=== PATIENT | male | born 1930 | race Caucasian/White ===

== ENCOUNTER → 2016-08-21 | Outpatient (CLI) | payer OTHER ==
[~2016-08-21] MED LIST: ATOR-22 PO; CHOL20007 PO; DABI150C PO; DILT-115 PO; FLUT0.15; LSX20 PO; METF-384 PO; MULT-506 PO; MULT60CA PO; PRT/20 PO; TAMS0.4C38 PO
[2016-08-21 17:37] LABS: ALT/SGPT 26 U/L (12-78); AST/SGOT 13 U/L (15-37); BLOOD UREA NITROGEN 25 mg/dl (7-18); BUN/CREATININE RATIO 20.6 (10-20); CARBON DIOXIDE 30 mmol/L (21-32); CHLORIDE 105 mmol/L (98-107); GLUCOSE 126 mg/dl (70-99); HDL CHOLESTEROL 79 mg/dl; POTASSIUM 4.2 mmol/L (3.5-5.1); SODIUM 143 mmol/L (136-145)
[2016-08-21 17:40] LABS: ALKALINE PHOSPHATASE 74 U/L (45-117); CHOLESTEROL 145 mg/dl (0-200); CHOLESTEROL/HDL RATIO 1.8; LDL CHOLESTEROL CALCULATED 36 mg/dl; TRIGLYCERIDES 151 mg/dl (0-150); VERY LOW DENSITY LIPOPROT CALC 30 mg/dl
== END | disposition home or self-care (01) ==
LOC: C.LABBC 15:36
PROVIDERS: ATTEND Internal Medicine
DX: Z00.00 Encounter for general adult medical examination without abnormal findings (principal)

== ENCOUNTER → 2016-08-24 | Outpatient (CLI) | payer OTHER ==
[2016-08-24 13:34] LABS: BASO % 0.2 %; BASO ABS # 0.02 K/uL (0-0.2); COMPLETE YES; EOS % 3.6 %; HEMATOCRIT 41.7 % (42-52); IG% 0.1 %; LYMPH % 23.9 %; LYMPH ABS # 1.99 K/uL (1.2-3.4); MEAN CELL VOLUME 86.3 fL (80-100); MEAN CORPUSCULAR HEMOGLOBIN 28.8 pg (25-34); MEAN CORPUSCULAR HGB CONC 33.3 g/dl (32-36); MEAN PLATELET VOLUME 11.7 fL (7.4-10.4); MONO % 8.7 %; NEUT % 63.5 %; PLATELET COUNT 196 K/uL (130-400); RED BLOOD COUNT 4.83 M/uL (4.7-6.1); WHITE BLOOD COUNT 8.31 K/uL (4.8-10.8)
[2016-08-24 14:01] LABS: ESTIMATED AVERAGE GLUCOSE 154 mg/dl; HA1C FLAG Normal (Normal)
== END | disposition home or self-care (01) ==
LOC: C.LABBC 11:31
PROVIDERS: ATTEND Internal Medicine
DX: Z79.01 Long term (current) use of anticoagulants (principal); Z51.81 Encounter for therapeutic drug level monitoring; E11.9 Type 2 diabetes mellitus without complications

== ENCOUNTER → 2017-02-23 | Outpatient (CLI) | payer OTHER ==
[2017-02-23 12:20] LABS: BLOOD UREA NITROGEN 22 mg/dl (7-18); BUN/CREATININE RATIO 18.6 (10-20); CALCIUM 9.3 mg/dl (8.5-10.1); CARBON DIOXIDE 29 mmol/L (21-32); CHLORIDE 104 mmol/L (98-107); GLUCOSE 204 mg/dl (70-99); SODIUM 138 mmol/L (136-145)
[2017-02-23 13:04] LABS: ESTIMATED AVERAGE GLUCOSE 146 mg/dl; HA1C FLAG Normal (Normal)
== END | disposition home or self-care (01) ==
LOC: C.LAB1850 10:21
PROVIDERS: ATTEND Physician Assistant Medical
DX: E78.5 Hyperlipidemia, unspecified (principal); E55.9 Vitamin D deficiency, unspecified; E11.29 Type 2 diabetes mellitus with other diabetic kidney complication

== ENCOUNTER → 2017-06-13 | Outpatient (CLI) | payer OTHER ==
[~2017-06-13] MED LIST changes: +AMOX875T PO
[2017-06-13 17:33] LABS: HEMATOCRIT 42.4 % (42-52); HEMOGLOBIN 14.1 g/dL (14.0-18.0); MEAN CELL VOLUME 86.2 fL (80-100); MEAN CORPUSCULAR HEMOGLOBIN 28.7 pg (25-34); MEAN CORPUSCULAR HGB CONC 33.3 g/dl (32-36); MEAN PLATELET VOLUME 11.9 fL (7.4-10.4); PLATELET COUNT 219 K/uL (130-400); RED CELL DISTRIBUTION WIDTH CV 14.7 % (11.5-14.5); RED CELL DISTRIBUTION WIDTH SD 45.4 fL (36.4-46.3); WHITE BLOOD COUNT 10.15 K/uL (4.8-10.8)
[2017-06-13 17:58] LABS: BLOOD UREA NITROGEN 24 mg/dl (7-18); CALCIUM 9.9 mg/dl (8.5-10.1); CARBON DIOXIDE 30 mmol/L (21-32); CREATININE 1.57 mg/dl (0.60-1.40); GLUCOSE 150 mg/dl (70-99); POTASSIUM 4.2 mmol/L (3.5-5.1); SODIUM 136 mmol/L (136-145)
== END | disposition home or self-care (01) ==
LOC: C.LABBC 15:11
PROVIDERS: ATTEND Internal Medicine Cardiovascular Disease
DX: I50.32 Chronic diastolic (congestive) heart failure (principal); Z79.01 Long term (current) use of anticoagulants; I48.92 Unspecified atrial flutter

== ENCOUNTER → 2017-06-22 | Outpatient (CLI) | payer OTHER ==
[~2017-06-22] MED LIST changes: -AMOX875T PO
[2017-06-22 14:15] LABS: BLOOD UREA NITROGEN 26 mg/dl (7-18); CALCIUM 9.4 mg/dl (8.5-10.1); CARBON DIOXIDE 29 mmol/L (21-32); CREATININE 1.31 mg/dl (0.60-1.40); GLUCOSE 128 mg/dl (70-99); POTASSIUM 4.1 mmol/L (3.5-5.1); SODIUM 139 mmol/L (136-145)
== END | disposition home or self-care (01) ==
LOC: C.LABBC 12:13
PROVIDERS: ATTEND Internal Medicine Cardiovascular Disease
DX: N28.9 Disorder of kidney and ureter, unspecified (principal)

== ENCOUNTER → 2017-08-07 | Outpatient (CLI) | payer OTHER ==
[2017-08-07 13:21] LABS: BASO % 0.5 %; BASO ABS # 0.04 K/uL (0-0.2); EOS % 5.8 %; EOS ABS # 0.47 K/uL (0-0.5); HEMATOCRIT 42.2 % (42-52); HEMOGLOBIN 14.3 g/dL (14.0-18.0); IG# 0.01 K/uL (0.00-0.02); LYMPH % 28.1 %; LYMPH ABS # 2.29 K/uL (1.2-3.4); MEAN CELL VOLUME 85.9 fL (80-100); MEAN CORPUSCULAR HEMOGLOBIN 29.1 pg (25-34); MEAN CORPUSCULAR HGB CONC 33.9 g/dl (32-36); MEAN PLATELET VOLUME 12.1 fL (7.4-10.4); MONO % 8.8 %; MONO ABS # 0.72 K/uL (0.11-0.59); NEUT % 56.7 %; NEUT ABS # 4.63 K/uL (1.4-6.5); PLATELET COUNT 197 K/uL (130-400); RED CELL DISTRIBUTION WIDTH CV 14.9 % (11.5-14.5); RED CELL DISTRIBUTION WIDTH SD 47.2 fL (36.4-46.3); WHITE BLOOD COUNT 8.16 K/uL (4.8-10.8)
[2017-08-07 13:40] LABS: ALBUMIN 3.6 gm/dl (3.4-5.0); ALKALINE PHOSPHATASE 79 U/L (45-117); ALT/SGPT 28 U/L (12-78); AST/SGOT 18 U/L (15-37); BLOOD UREA NITROGEN 30 mg/dl (7-18); CALCIUM 9.7 mg/dl (8.5-10.1); CARBON DIOXIDE 32 mmol/L (21-32); CREATININE 1.36 mg/dl (0.60-1.40); GLUCOSE 119 mg/dl (70-99); POTASSIUM 4.4 mmol/L (3.5-5.1); SODIUM 139 mmol/L (136-145); TOTAL PROTEIN 7.5 gm/dl (6.4-8.2)
== END | disposition home or self-care (01) ==
LOC: C.LABBC 09:50
PROVIDERS: ATTEND Internal Medicine
DX: R53.83 Other fatigue (principal); I48.92 Unspecified atrial flutter; I50.32 Chronic diastolic (congestive) heart failure; E11.29 Type 2 diabetes mellitus with other diabetic kidney complication; Z79.01 Long term (current) use of anticoagulants

== ENCOUNTER 2017-08-27 09:49 | Emergency (ER) | payer OTHER ==
[~2017-08-27] VITALS: Ht 157.5 cm; Wt 93.1 kg
[2017-08-27 10:15] VITALS: TEMP 36.7; O2SAT 97; Ht 157.5 cm; Wt 93.1 kg
[2017-08-27 10:49] LABS: BASO % 0.2 %; BASO ABS # 0.02 K/uL (0-0.2); EOS % 1.2 %; HEMATOCRIT 40.2 % (42-52); HEMOGLOBIN 13.9 g/dL (14.0-18.0); IG# 0.02 K/uL (0.00-0.02); LYMPH % 9.7 %; MEAN CELL VOLUME 83.2 fL (80-100); MEAN CORPUSCULAR HEMOGLOBIN 28.8 pg (25-34); MEAN CORPUSCULAR HGB CONC 34.6 g/dl (32-36); MEAN PLATELET VOLUME 10.5 fL (7.4-10.4); MONO % 6.4 %; MONO ABS # 0.53 K/uL (0.11-0.59); NEUT % 82.3 %; NEUT ABS # 6.79 K/uL (1.4-6.5); PLATELET COUNT 190 K/uL (130-400); RED CELL DISTRIBUTION WIDTH CV 14.8 % (11.5-14.5); RED CELL DISTRIBUTION WIDTH SD 45.2 fL (36.4-46.3); WHITE BLOOD COUNT 8.26 K/uL (4.8-10.8)
[2017-08-27 10:59] LABS: INR 1.2 (0.9-1.1); PTT PATIENT 38.7 SECONDS (21.0-31.0)
--- NOTE | 2017-08-27 11:01 | DIAGNOSTIC IMAGING REPORT ---
CHEST ONE VIEW PORTABLE CLINICAL HISTORY: 87 years-old Male presenting with EVALUATE ALTERED MENTAL STATUS/WEAKNESS. TECHNIQUE: Portable upright AP view of the chest was obtained. COMPARISON: 03/29/2016. FINDINGS: Atherosclerosis of aortic arch. Cardiac silhouette enlarged. Left retrocardiac opacity with obscuration of the left hemidiaphragm. Right lung and pleural space clear. Degenerative changes of the thoracic spine. Cholecystectomy clips noted. IMPRESSION: 1. Cardiomegaly. No acute cardiopulmonary disease. 2. Left retrocardiac opacity likely relates to a large hiatal hernia and atelectasis. Electronically signed by: Alfredo Hernandez M.D. 08/27/2017 10:59 AM Dictated Date/Time: 08/27/2017 10:57 AM
[2017-08-27 11:07] LABS: ALBUMIN 3.4 gm/dl (3.4-5.0); ALT/SGPT 25 U/L (12-78); BLOOD UREA NITROGEN 22 mg/dl (7-18); CALCIUM 9.5 mg/dl (8.5-10.1); CARBON DIOXIDE 26 mmol/L (21-32); CREATININE 1.26 mg/dl (0.60-1.40); GLUCOSE 155 mg/dl (70-99); LIPASE 67 U/L (73-393); SODIUM 137 mmol/L (136-145)
--- NOTE | 2017-08-27 11:07 | DIAGNOSTIC IMAGING REPORT ---
HEAD WITHOUT CONTRAST (CT) CLINICAL HISTORY: 87 years-old Male presenting with EVALUATE ALTERED MENTAL STATUS/WEAKNESS. TECHNIQUE: Multidetector CT imaging of the head was performed without the use of intravenous contrast. IV contrast: None. A dose lowering technique was used consistent with the principles of ALARA (as low as reasonably achievable). COMPARISON: None. CT DOSE (mGy.cm): The estimated cumulative dose is 537.48 mGy.cm. FINDINGS: Supervisor Assembly Stock topogram: Unremarkable. Proportional ventricular and sulcal prominence, likely age-related parenchymal volume loss. Brain parenchyma normal in appearance with preserved trivedi-white differentiation. No mass effect or midline shift. No hemorrhage or acute territorial infarct. No extra-axial fluid collection. Mucosal thickening in the left frontal sinus and ethmoid air cells with aerated secretions. Calvarium intact. IMPRESSION: 1. No acute intracranial abnormality. 2. Extensive mucosal thickening with some aerated secretions in the left frontal sinus and ethmoid air cells, raising concern for acute sinusitis. Electronically signed by: Alfredo Hernandez M.D. 08/27/2017 11:06 AM Dictated Date/Time: 08/27/2017 11:04 AM
[2017-08-27 11:16] LABS: ALKALINE PHOSPHATASE 81 U/L (45-117); AST/SGOT 18 U/L (15-37); CKMB 1.7 ng/ml (0.5-3.6); TOTAL PROTEIN 7.3 gm/dl (6.4-8.2)
[2017-08-27] MEDS ORDERED: AMOX875T PO (12:03)
--- NOTE | 2017-08-27 12:04 | EMERGENCY ROOM VISIT NOTE ---
History Report prepared by Fransisco: Parth Rodriges Under the Supervision of: Dr. Willi Zaidi D.O. First contact with patient: 10:13 Chief Complaint: SHORTNESS OF BREATH Stated Complaint: SHORTNESS OF BREATH, FELL DOWN THIS MORNING History of Present Illness The patient is a 87 year old male who presents to the Emergency Room by EMS with complaints of a syncopal episode occurring two hours ago. The patient also complains of leg swelling, and shortness of breath (last night). He states that he had an episode of involuntary movement of his arms and legs during the night last night. He state that he was laying in bed during this episode, and was awake during the entire episode. The patient that he stood up, took four steps and passed out immediately after waking up this morning. He landed on a carpeted floor, and did not injure himself. He notes that he lost bladder continence. The event was heard by his , who immediately found the patient. The patient's breathing is worsened with laying down. He has no known history of sleep apnea. He has a history of CHF. The patient notes that he often has trouble breathing towards the end of the night each night due to problems breathing through his nose. The patient's estimates that the patient was unconscious for about 30 seconds. Source of History: patient, spouse/significant other () Onset: Last night Symptom Intensity: unconscious for about 30 seconds Quality: other (syncope) Timing: other (episode) Associated Symptoms: + LOC, + SOB Note: Additional symptoms: leg swelling. Review of Systems See HPI for pertinent positives & negatives. A total of 10 systems reviewed and were otherwise negative. Past Medical & Surgical Medical Problems: (1) Cardiomegaly (2) CHF (congestive heart failure) (3) Diabetes (4) HLD (hyperlipidemia) (5) Sinusitis Family History No pertinent family history stated. Social History Smoking Status: Never Smoker Marital Status: Occupation Status: retired Current/Historical Medications Scheduled Amoxicillin & Pot Clavulanate (Augmentin 875-125 mg), 875 MG PO BID Atorvastatin (Lipitor), 20 MG PO DAILY Cholecalciferol (Vitamin D3), 1 TAB PO DAILY Dabigatran Etexilate Mesylate (Pradaxa), 150 MG PO BID Diltiazem Hcl Ext Rel (Tiazac), 240 MG PO DAILY Fluticasone Propionate (Nasal) (Flonase Allergy Relief), 1 SPRAY NA UD Furosemide (Furosemide), 20 MG PO DAILY Metformin Hcl (Glucophage), 1,000 MG PO BID Multiple Vitamins W/ Minerals (Preservision Areds 2), 1 CAP PO DAILY Multivitamin (Multivitamin), 1 TAB PO DAILY Pantoprazole (Protonix), 20 MG PO DAILY Tamsulosin Hcl (Flomax), 0.4 MG PO DAILY Allergies Coded Allergies: No Known Allergies (Unverified , 08/27/17) Physical Exam Vital Signs Date Time Temp Pulse Resp B/P (MAP) Pulse Ox O2 Delivery O2 Flow Rate FiO2 08/27/17 12:16 76 18 108/66 96 Room Air 08/27/17 11:08 57 18 127/75 97 Room Air 87 121/80 86 129/82 08/27/17 10:15 36.7 64 20 134/83 97 Room Air 08/27/17 10:15 97 Room Air 08/27/17 10:15 68 Physical Exam CONSTITUTIONAL/VITAL SIGNS: Reviewed / noted above. GENERAL: Non-toxic in appearance. INTEGUMENTARY: Warm, dry, and [place]. HEAD: Normocephalic. EYES: without scleral icterus or trauma. ENT/OROPHARYNX: clear and moist. LYMPHADENOPATHY/NECK: Is supple without lymphadenopathy or meningismus. RESPIRATORY: Lungs clear and equal. CARDIOVASCULAR: Regular rate and rhythm. GI/ABDOMEN: Soft and nontender. No organomegaly or pulsatile mass. No rebound or guarding. Normal bowel sounds. EXTREMITIES: Warm and well perfused. BACK: No CVA tenderness. NEUROLOGICAL: Intact without focal deficits. PSYCHIATRIC: normal affect. MUSCULOSKELETAL: Normally developed with good muscle tone. 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 Proportional ventricular and sulcal prominence, likely age-related parenchymal volume loss. Brain parenchyma normal in appearance with preserved trivedi-white differentiation. No mass effect or midline shift. No hemorrhage or acute territorial infarct. No extra-axial fluid collection. Mucosal thickening in the left frontal sinus and ethmoid air cells with aerated secretions. Calvarium intact. IMPRESSION: 1. No acute intracranial abnormality. 2. Extensive mucosal thickening with some aerated secretions in the left frontal sinus and ethmoid air cells, raising concern for acute sinusitis. Electronically signed by: Alfredo Hernandez M.D. 08/27/2017 11:06 AM CHEST ONE VIEW PORTABLE FINDINGS: Atherosclerosis of aortic arch. Cardiac silhouette enlarged. Left retrocardiac opacity with obscuration of the left hemidiaphragm. Right lung and pleural space clear. Degenerative changes of the thoracic spine. Cholecystectomy clips noted. IMPRESSION: 1. Cardiomegaly. No acute cardiopulmonary disease. 2. Left retrocardiac opacity likely relates to a large hiatal hernia and atelectasis. Electronically signed by: Alfredo Hernandez M.D. 08/27/2017 10:59 AM Laboratory Results 08/27/17 10:15 Red Blood Count 4.83, Mean Corpuscular Volume 83.2, Mean Corpuscular Hemoglobin 28.8, Mean Corpuscular Hemoglobin Concent 34.6, Mean Platelet Volume 10.5, Neutrophils (%) (Auto) 82.3, Lymphocytes (%) (Auto) 9.7, Monocytes (%) (Auto) 6.4, Eosinophils (%) (Auto) 1.2, Basophils (%) (Auto) 0.2, Neutrophils # (Auto) 6.79, Lymphocytes # (Auto) 0.80, Monocytes # (Auto) 0.53, Eosinophils # (Auto) 0.10, Basophils # (Auto) 0.02 08/27/17 10:15 Test 08/27/17 10:15 08/27/17 11:15 White Blood Count 8.26 K/uL (4.8-10.8) Red Blood Count 4.83 M/uL (4.7-6.1) Hemoglobin 13.9 g/dL (14.0-18.0) Hematocrit 40.2 % (42-52) Mean Corpuscular Volume 83.2 fL (80-100) Mean Corpuscular Hemoglobin 28.8 pg (25-34) Mean Corpuscular Hemoglobin Concent 34.6 g/dl (32-36) Platelet Count 190 K/uL (130-400) Mean Platelet Volume 10.5 fL (7.4-10.4) Neutrophils (%) (Auto) 82.3 % Lymphocytes (%) (Auto) 9.7 % Monocytes (%) (Auto) 6.4 % Eosinophils (%) (Auto) 1.2 % Basophils (%) (Auto) 0.2 % Neutrophils # (Auto) 6.79 K/uL (1.4-6.5) Lymphocytes # (Auto) 0.80 K/uL (1.2-3.4) Monocytes # (Auto) 0.53 K/uL (0.11-0.59) Eosinophils # (Auto) 0.10 K/uL (0-0.5) Basophils # (Auto) 0.02 K/uL (0-0.2) RDW Standard Deviation 45.2 fL (36.4-46.3) RDW Coefficient of Variation 14.8 % (11.5-14.5) Immature Granulocyte % (Auto) 0.2 % Immature Granulocyte # (Auto) 0.02 K/uL (0.00-0.02) Prothrombin Time 12.5 SECONDS (9.0-12.0) Prothromb Time International Ratio 1.2 (0.9-1.1) Activated Partial Thromboplast Time 38.7 SECONDS (21.0-31.0) Partial Thromboplastin Ratio 1.5 Anion Gap 10.0 mmol/L (3-11) Est Creatinine Clear Calc Drug Dose 39.4 ml/min Estimated GFR () 58.2 Estimated GFR (Non- 50.2 BUN/Creatinine Ratio 17.5 (10-20) Calcium Level 9.5 mg/dl (8.5-10.1) Magnesium Level 1.8 mg/dl (1.8-2.4) Total Bilirubin 0.8 mg/dl (0.2-1) Direct Bilirubin 0.2 mg/dl (0-0.2) Aspartate Amino Transf (AST/SGOT) 18 U/L (15-37) Alanine Aminotransferase (ALT/SGPT) 25 U/L (12-78) Alkaline Phosphatase 81 U/L (45-117) Total Creatine Kinase 74 U/L (39-308) Creatine Kinase MB 1.7 ng/ml (0.5-3.6) Creatine Kinase MB Ratio 2.3 (0-3.0) Troponin I < 0.015 ng/ml (0-0.045) Total Protein 7.3 gm/dl (6.4-8.2) Albumin 3.4 gm/dl (3.4-5.0) Lipase 67 U/L (73-393) Thyroid Stimulating Hormone (TSH) 2.760 uIu/ml (0.300-4.500) Urine Color YELLOW Urine Appearance CLEAR (CLEAR) Urine pH 8.5 (4.5-7.5) Urine Specific [employer] 1.013 (1.000-1.030) Urine Protein NEG (NEG) Urine Glucose (UA) NEG (NEG) Urine Ketones TRACE (NEG) Urine Occult Blood NEG (NEG) Urine Nitrite NEG (NEG) Urine Bilirubin NEG (NEG) Urine Urobilinogen NEG (NEG) Urine Leukocyte Esterase NEG (NEG) Urine WBC (Auto) 1-5 /hpf (0-5) Urine RBC (Auto) 0-4 /hpf (0-4) Urine Hyaline Casts (Auto) 0 /lpf (0-5) Urine Epithelial Cells (Auto) 5-10 /lpf (0-5) Urine Bacteria (Auto) NEG (NEG) Laboratory results as stated above per my review. Medications Administered Medications (Trade) Dose Ordered Sig/Sudhir Route Start Time Stop Time Status Last Admin Dose Admin Amoxicillin/ Clavulanate Potassium (Augmentin Tab) 875 mg ONE ONCE PO 08/27/17 12:15 08/27/17 12:16 DC 08/27/17 12:16 875 MG ECG Per My Interpretation Indication: SOB/dyspnea Rate (beats per minute): 59 Rhythm: sinus bradycardia Findings: 1st degree AV block, LBBB Comparison ECG Date: February 2016 Change: no significant change ED Course 1025: Previous medical records were reviewed. The patient was evaluated in room B6. A complete history and physical examination was performed. 1202: On reevaluation, the patient is resting comfortably. I discussed the results and findings with the patient. He verbalized agreement of the treatment plan. The patient was discharged home. Medical Decision Differential includes acute cardiac dysrhythmia, microinfarction, CVA, TIA, dehydration, anemia, electrolyte disturbance, seizure, trauma, intracranial bleeding, acute vascular catastrophe, thoracic aortic dissection, PE, abdominal aortic aneurysm rupture. This is an 87-year-old male who presents to the ED with a chief complaint of a syncopal episode this morning. The patient reports that he awoke this morning around 4 AM and was thrashing about and startled when he awoke. He also woke his when he was thrashing about. The patient then states that he got up and urinated. He went back to bed and awoke at 8 AM this morning. When he got up to urinate again, he states that he had a syncopal episode. He passed out onto the carpeted floor but did not get hurt. The patient recalls getting up slowly but not feeling lightheaded. He states that he had to urinate bad and believes that he may have started urinating before he got to the toilet. His was present and heard the thump. She went to him and he was unresponsive for about 30 seconds his physical exam is completely normal. A CT scan of the head did not show acute intracranial process although there was a left sided acute sinusitis. This could be part of the breathing issue although the patient 's symptoms and his body habitus also favor sleep apnea. The patient had a chest x-ray did not show acute process. There was noted to be cardiomegaly and hiatal hernia. Urine did not show infection, CBC and complete metabolic panel were unremarkable and TSH was normal. The patient's EKG showed a sinus bradycardia with a first-degree AV block and a left bundle branch block at a rate of 60. This is not seem any different than a previous one of 2016. The patient was told the results of the test. He remained asymptomatic during his ED stay. I did speak with Dr. Alfredo Geiger about the patient. We will start the patient on Augmentin for his sinus infection. He will also follow-up with Dr. Casiano for further evaluation of possible sleep apnea. The patient's syncopal episode could be related to an arrhythmia although I did not find anything to suggest this at this time. Certainly getting up quickly out of bed and fact that he had to urinate and may have started urinating prior to reaching the bathroom could have been related to a vasovagal type of syncope as well. Patient does not want to stay in the hospital for further evaluation at this time. He is clinically stable and is without complaints and is felt to be stable for discharge. Medication Reconcilliation Current Medication List: was personally reviewed by me Blood Pressure Screening Patient's blood pressure: Normal blood pressure Blood pressure disposition: Did not require urgent referral Consults Time Called: 1140 Consulting Physician: Dr. Geiger - Primary Care Returned Call: [phone] Discussed the patient's case. Dr. Geiger agrees with the treatment plan. He will work to get the patient set up for an outpatient sleep study. He will follow up with the patient. Impression Primary Impression: Sinusitis Additional Impression: Syncope Scribe Attestation The scribe's documentation has been prepared under my direction and personally reviewed by me in its entirety. I confirm that the note above accurately reflects all work, treatment, procedures, and medical decision making performed by me. Departure Information Dispostion Home / Self-Care Prescriptions Amoxicillin & Pot Clavulanate (Augmentin 875-125 mg) 1 Tab Tab 875 MG PO BID, #14 TAB Prov: Willi Zaidi D.O. 08/27/17 Referrals Alfredo Geiger M.D. (PCP) Patient Instructions My [facility] Additional Instructions Augmentin as prescribed for sinusitis. Follow-up with Dr. Geiger for further evaluation of your symptoms. Call today or tomorrow for an appointment. Follow-up with your doctor for further care and evaluation in 1-7 days. Return to the emergency department for worsening or new symptoms or any concerns. You have been examined and treated today on an emergency basis only. This is not a substitute for, or an effort to provide, complete comprehensive medical care. It is impossible to recognize and treat all injuries or illnesses in a single emergency department visit. It is therefore important that you follow up closely with your doctor. Call as soon as possible for an appointment. Problem Qualifiers
[2017-08-27] MEDS ORDERED: AMOXICILLIN/CLAVULANATE TAB 875 MG TAB PO ONE (12:15)
[2017-08-27 12:16] VITALS: BP 108/66; PULSE 76; O2SAT 96
== END 2017-08-27 12:24 | disposition home or self-care (01) ==
LOC: C.EDB 09:51
DX: J01.90 Acute sinusitis, unspecified (principal); R55 Syncope and collapse; R39.81 Functional urinary incontinence; I50.9 Heart failure, unspecified; I51.7 Cardiomegaly; E11.9 Type 2 diabetes mellitus without complications; Z79.84 Long term (current) use of oral hypoglycemic drugs

== ENCOUNTER → 2017-09-06 | Outpatient (CLI) | payer OTHER ==
[~2017-09-06] MED LIST changes: +AMOX875T PO
[2017-09-06 17:46] LABS: BASO % 0.3 %; BASO ABS # 0.03 K/uL (0-0.2); EOS % 1.7 %; EOS ABS # 0.19 K/uL (0-0.5); HEMOGLOBIN 13.7 g/dL (14.0-18.0); IG# 0.01 K/uL (0.00-0.02); LYMPH % 16.5 %; LYMPH ABS # 1.81 K/uL (1.2-3.4); MEAN CELL VOLUME 83.9 fL (80-100); MEAN CORPUSCULAR HEMOGLOBIN 28.7 pg (25-34); MEAN CORPUSCULAR HGB CONC 34.3 g/dl (32-36); MEAN PLATELET VOLUME 10.8 fL (7.4-10.4); MONO % 8.4 %; MONO ABS # 0.92 K/uL (0.11-0.59); NEUT ABS # 8.04 K/uL (1.4-6.5); PLATELET COUNT 305 K/uL (130-400); RED CELL DISTRIBUTION WIDTH CV 14.7 % (11.5-14.5); RED CELL DISTRIBUTION WIDTH SD 44.9 fL (36.4-46.3)
[2017-09-06 18:20] LABS: ALBUMIN 3.3 gm/dl (3.4-5.0); ALT/SGPT 33 U/L (12-78); AST/SGOT 15 U/L (15-37); BLOOD UREA NITROGEN 21 mg/dl (7-18); CALCIUM 9.1 mg/dl (8.5-10.1); CARBON DIOXIDE 26 mmol/L (21-32); CREATININE 1.29 mg/dl (0.60-1.40); GLUCOSE 195 mg/dl (70-99); POTASSIUM 3.8 mmol/L (3.5-5.1); SODIUM 136 mmol/L (136-145)
[2017-09-06 18:31] LABS: ALKALINE PHOSPHATASE 76 U/L (45-117); TOTAL PROTEIN 7.5 gm/dl (6.4-8.2)
== END | disposition home or self-care (01) ==
LOC: C.LAB1850 16:13
PROVIDERS: ATTEND Internal Medicine
DX: R35.0 Frequency of micturition (principal); I50.32 Chronic diastolic (congestive) heart failure; Z79.01 Long term (current) use of anticoagulants; G47.30 Sleep apnea, unspecified; I48.92 Unspecified atrial flutter; J32.9 Chronic sinusitis, unspecified; H81.11 Benign paroxysmal vertigo, right ear; R53.83 Other fatigue

== ENCOUNTER → 2017-09-18 | Outpatient (CLI) | payer OTHER ==
[~2017-09-18] MED LIST changes: -AMOX875T PO
--- NOTE | 2017-09-18 12:32 | DIAGNOSTIC IMAGING REPORT ---
CT OF THE HEAD WITHOUT CONTRAST CLINICAL HISTORY: SYNCOPE COMPARISON STUDY: Head CT August 27, 2017. CT DOSE: 765.09 mGycm TECHNIQUE: Helical axial images of the head were obtained without IV contrast. Automated exposure control was utilized for the study. A dose lowering technique was utilized adhering to the principles of ALARA. FINDINGS: No acute intracranial hemorrhage, midline shift or mass effect is present. Ventricular system is normal for age. Basilar cisterns are patent. There are no extra axial collections. White matter hypodensity suggests small vessel disease. These are unchanged. There are no findings to suggest acute dural sinus thrombosis or acute territorial infarct. There is no calvarial fracture. There is mild mucosal thickening of the sinuses. IMPRESSION: No acute intracranial findings. Electronically signed by: King Chacon M.D. 09/18/2017 12:31 PM Dictated Date/Time: 09/18/2017 12:27 PM
== END | disposition home or self-care (01) ==
LOC: C.CTS 12:05
PROVIDERS: ATTEND Internal Medicine
DX: R55 Syncope and collapse (principal); R53.83 Other fatigue

== ENCOUNTER → 2017-09-25 | Outpatient (CLI) | payer OTHER ==
--- NOTE | 2017-09-26 07:21 | PAP/PSG TECHNICIAN REPORT ---
[facility] Anatomy Teacher Polysomnogram Report Study name: None Report date: 09/26/2017 Study date: 09/25/2017 Referring Physician: DR. Trent BOTELLO Name: WILFRED BRDIGES Interpreting Physician: Clem Sanchez M.D. Date of : 1930 Anatomy Teacher: Wanda Sevilla, PSGT. Sex: Male Age: 87 StudyType: PSG Weight: 205 lbs Height: 87 years, Height 5' 4" Neck Circum:16.5 inches BMI: 35.18 Medications: Furosemide 20 mg, Pantoprazoloneq 20 mg, Metformin 1000 mg, Atrovastatin 20 mg, Tamsolusin 0.4 mg, Diltazem 240 mg, Pradaxa 150 mg. Patient History 87 year old male presents by [facility] with Atrial Flutter, Breathing related sleep disorder, Fatigue, Gasping for breath, Snoring and a recent syncope episode on August 27, 2017.Patient states that he wakes often to urinate, he will be using a urinal for this study.Neck=16.5 inches Parameters Monitored NPSG: E1-M2, E2-M1, Fp1-M2, Fp2-M1, F3-M2, F4-M2, F4-M1, C3-M2, C4-M2, C4-M1, O1-M2, O2-M2, O2-M1, T3-M2, T4-M1, P3-M2, P4-M1, CHIN1, CHIN2, HR, EKG, Legs, PFLOW, SNOR, FLOW, CFLOW, Tidal Volume, THOR, ABDO, SpO2, PLTH, CPRESS, ETCO2 Wave, ETCO2, pH Sleep Architecture Sleep Stages Time at Lights Off 9:41:19 PM STAGES Time (min.) TST (%) Time at Lights On 5:29:49 AM Wake 193.0 -- Total Recording Time (TRT) 470.50 min. N1 5.5 2 Total Sleep Period (TSP) 451.5 min. N2 250.5 92 Total Sleep Time (TST) 273.5min. N3 0.0 0 Awake Time 193.0 min. REM 17.5 6 Wake after Sleep Onset 178.0 min. Sleep Efficiency (SE) 59 % Sleep Onset Latency (CELESTE) 17.0 min. Number of Stage 1 Shifts None Awakenings 6 Stage Changes 27 Number of REM periods 1 REM 17.5 6 REM Latency 413.5 min. NREM 256.0 94 Body Position Analysis Supine Right Left Side Prone Vertical Total Sleep Time (min.) 344.4 100.1 0.0 100.14 0.0 0.0 Total Sleep Time (%) 63% 37% 0% 37 0% N/A% Total Sleep Time REM (min.) 16.6 0.9 0.0 None 0.0 0.0 Total Sleep Time NREM (min.) 156.7 99.3 0.0 None 0.0 0.0 Intermittent Wake (min.) 171.1 0.0 21.9 None 0.0 0.0 Total Sleep Period (%) 73% None None None None None Arousals Myoclonus (PLM) * Events Count Index Events Count Index Spontaneous 67 15 Events Awake (PLMW) 6 1.9 Respiratory 81 18.0 Events Asleep w/ Arousal (PLMA) 19 4.2 PLM 19 4 Events Asleep w/o Arousal (PLMS) 274 60.1 Snoring 34 7 Total Asleep 293 64.3 Total 199 44 Total 299 38 Respiratory Analysis * CA OA MA CH H RERA Total Count 2 151 54 0 131 1 338 Index 0.4 33.1 11.8 0 28.7 0 74.1 Mean Duration 28.1 24.0 23.0 0.00 18.3 12.5 21.7 Longest Duration 29.4 59.2 36.3 0.00 36.3 12.5 59.2 Respiratory Event Summary Total Supine ~Supine Right Left Prone REM NREM Apneas Count 207 136 71 71 N/A N/A 11 196 Index 45.4 47 43 42.5 N/A N/A 38 46 Hypopneas (4% Desat) Count 131 66 65 65 N/A N/A 7 124 Index 28.7 22.8 39 38.9 N/A N/A 24.0 29.1 Apneas & All Hypopneas Count 338 202 136 136 N/A N/A 18 320 Index 74.1 70 81 81 N/A N/A 61.7 75.0 Respiratory Events (Mechanical Maintenance Engineer+All Hyp+RERA) Count 338 202 136 136 N/A N/A 18 320 Index 74.1 70 81 81.5 N/A N/A 61.7 75.0 Respiratory Related Arousal Count 81 202 41 41 N/A N/A 2 80 Index 18.0 14 25 25 N/A N/A 7 19 Snoring Analysis Supine Right Left Prone REM NREM Total Snore duration 33.3 min Snores count 710 392 N/A N/A 60 1,042 1,102 Snore mean duration 1.8 Sec Snores index 246 235 N/A N/A 205.7 244.2 241.8 TST with snoring (%) 12.2% Desaturation Event Summary: Minimum %SpO2 Event Count Mean/Min/Max Duration(sec.) Desaturation Index % Time In Bed > 90 297 25.0 / 9.8 / 59.8 62.5 61.9 86 - 90 62 23.2 / 7.3 / 51.0 24.7 32.7 81 - 85 0 N/A 0.0 4.1 76 - 80 0 N/A 0.0 0.9 71 - 75 0 N/A 0.0 0.3 66 - 70 0 N/A 0.0 0.1 61 - 65 0 N/A 0.0 0.1 56 - 60 0 N/A 0.0 0.0 51 - 55 0 N/A 0.0 0.0 < 50 0 N/A 0.0 0.0 Total REM NREM Awake <50% 0.0 min. 0.0 min. 0.0 min. 0.0 min. 51 - 60% 0.1 min. 0.1 min. 0.0 min. 0.0 min. 61 - 70% 0.9 min. 0.8 min. 0.0 min. 0.0 min. 71 - 80% 5.4 min. 2.0 min. 3.3 min. 0.1 min. 81 - 90% 169.5 min. 7.8 min. 125.4 min. 36.4 min. 91 - 100% 285.3 min. 6.8 min. 127.3 min. 151.2 min. Average 91 87 90 92 Minimum SpO2 59 59 70 79 Desaturation Event Index 39.9 51.4 69.1 0.0 # Desat. Events below 89% 251 12 239 0 Time(%) with Saturation below 89% 17.9 1.7 14.7 1.6 Time(min.) with Saturation below 89% 82.7 7.7 67.6 7.4 Time (mins) REM (mins) NREM (mins) % of TST SpO2 Below 90% 307 15 N292 38.7 SpO2 Below 88% 108 0 0 19 Heart Rate Analysis Min (bpm) Max (bpm) Average (bpm) Awake 45 127 70 NREM 53 83 64 REM 54 89 66 Overall 53 89 64 Supplemental O2 Values Minimum O2 level: None Value Start Time End Time Anatomy Teacher Comments PSG Study Mr. Bridges slept in the right, left, and supine positions. No cardiac arrhythmia. PLM's noted. No bruxism noted. Snoring was noted and scored as a 3 on a scale of 1 through 5. (0=no snoring, 5=snoring loud enough to be heard through a closed door or down the mar[address] way) Mr. Bridges awoke to use the restroom 2 times during the night. stated, I did not sleep as well as I do when I am in my own bed. The final report will be interpreted and signed by a sleep physician. The completed physician report will then be placed in the patient medical record Mr. Bridges displayed serve annemarie, however he did not meet the Medicare sleep guide lines to qualify for a split night study. He also had a lot of leg movements which seemed to wake him and keep him awake for long periods. Therapy (cm H2O) 0 TIB (min.) 466.5 TST (min.) 273.5 Sleep Onset (min.) 17.0 REM Onset From Sleep (min.) 413.5 Sleep Efficiency % 59 Wakefulness (%) 41 Wakefulness (min.) 193.0 NREM 1 (%) 2 NREM 1 (min.) 5.5 NREM 2 (%) 92 NREM 2 (min.) 250.5 NREM 3 (%) 0 NREM 3 (min.) 0.0 REM (%) 6 REM (min.) 17.5 # Arousals 199 Arousal Index 44 # Snore 1,102 Snore Index 241.8 AHI 74.1 AHI Supine 70 AHI Non-Supine 81 NREM AHI 75.0 REM AHI 61.7 RDI 74.1 # Obstructive Apnea 151 # Central Apnea 2 # Mixed Apnea 54 # Hypopneas 131 RERAs 1 Total Respiratory Events 345 Time Below SpO2 89% (min.) 75.3 Mean NREM SpO2 (%) 90 Mean REM SpO2 (%) 87 Mean Sleep SpO2 (%) 90 Min NREM SpO2 (%) 70 Min REM SpO2 (%) 59 Position Supine (min.) 344.4 Position Non-supine (min.) 100.1 LM Index Sleep 64.3 LM Index NREM 67.0 LM Index REM 24.0 Mean Heart Rate (bpm) 64 Min Heart Rate (bpm) 53
--- NOTE | 2017-09-27 15:05 | POLYSOMNOGRAPH REPORT ---
CLINICAL DATA: An 87-year-old male with BMI of 35.[address] Alfredo Geiger with a history of atrial flutter, sleep related breathing disorder, fatigue, nocturnal gasping and snoring. SLEEP ARCHITECTURE: Total sleep period was 451.5 minutes. Total sleep time was 273.5 minutes divided between 256 minutes of non-REM sleep and 17.5 minutes of REM sleep. Sleep latency was 17 minutes. REM latency was delayed at 413.5 minutes. Sleep efficiency was reduced to 59%. Wake after sleep onset was elevated at 178 minutes. Sleep consisted of stage N1 2%, stage N2 92%, and REM 6%. AROUSAL DATA: 199 arousals were recorded for an index of 44 per hour. 81 were due to respiratory events. PLM DATA: Severely elevated limb movements during sleep were noted. There were 293 limb movements during sleep noted for an index of 64.3 per hour with arousal index of 4.2 per hour. RESPIRATORY DATA: Severe sleep apnea was documented. The AHI was 74.1. There were 2 central, 151 obstructive, and 54 mixed apneic episodes. The longest apneic episode was 59.2 seconds. There were 131 hypopneic episodes with the longest hypopneic episode being 36.3 seconds. OXIMETRY DATA: Significant nocturnal hypoxemia was seen. Oxygen alberto was 59% during REM. Mean saturation was 91%. Time below 88% was 108 minutes. EKG: Heart rates ranged from 53 to 83 beats per minute. SDC TEACHER'S COMMENTS: The patient slept in the right, left, and supine position. Snoring was moderate, rated 3 on a scale of 1-5. The patient did not meet Medicare guidelines for a split night study because of lack of a high enough AHI in the first 2 hours of his sleep study. IMPRESSION: Severe sleep apnea/hypopnea with severe nocturnal hypoxemia. The patient did have long periods of wakefulness intermittently throughout the night precluding an attempt at CPAP titration. RECOMMENDATIONS: The patient may benefit from a repeat sleep study with CPAP/BiPAP or ASV. Sleep medicine consultation may be of benefit. Clinical correlation is needed. [facility]
== END | disposition home or self-care (01) ==
LOC: C.NEUR 20:00
PROVIDERS: ATTEND Internal Medicine
DX: I48.92 Unspecified atrial flutter (principal); G47.30 Sleep apnea, unspecified; R53.83 Other fatigue; R06.89 Other abnormalities of breathing; R06.83 Snoring

== ENCOUNTER → 2017-10-30 | Outpatient (CLI) | payer OTHER ==
--- NOTE | 2017-10-31 05:40 | PAP/PSG TECHNICIAN REPORT ---
[facility] Dust Brush Assembler Polysomnogram Report Study name: None Report date: 10/31/2017 Study date: 10/30/2017 Referring Physician: DR. Trent BOTELLO Name: WILFRED BRIDGES Interpreting Physician: Clem Sanchez M.D. Date of : 1930 Dust Brush Assembler: Dona Orellana [facility]. Sex: Male Age: 87 StudyType: PSG PAP Weight: 194 lbs Height: 87 years, Height 5' 4" BMI: 33.3 Medications: Furosemide 20 mg, Pantoprazoloneq 20 mg, Metformin 1000 mg, Atrovastatin 20 mg, Tamsolusin 0.4 mg, Diltazem 240 mg, Pradaxa 150 mg Patient History 87 yr. old male here for a new titration sleep study. Patients PSG was done on 09/25/17 and had an AHI of 74.1. Patient took a one time sleeping pill Parameters Monitored NPSG: E1-M2, E2-M1, Fp1-M2, Fp2-M1, F3-M2, F4-M2, F4-M1, C3-M2, C4-M2, C4-M1, O1-M2, O2-M2, O2-M1, T3-M2, T4-M1, P3-M2, P4-M1, CHIN1, CHIN2, HR, EKG, Legs, PFLOW, SNOR, FLOW, CFLOW, Tidal Volume, THOR, ABDO, SpO2, PLTH, CPRESS, ETCO2 Wave, ETCO2, pH Sleep Architecture Sleep Stages Time at Lights Off 9:56:49 PM STAGES Time (min.) TST (%) Time at Lights On 4:59:19 AM Wake 87.5 -- Total Recording Time (TRT) 422.50 min. N1 23.0 7 Total Sleep Period (TSP) 403.0 min. N2 262.0 78 Total Sleep Time (TST) 335.0min. N3 33.0 10 Awake Time 87.5 min. REM 17.0 5 Wake after Sleep Onset 83.0 min. Sleep Efficiency (SE) 79 % Sleep Onset Latency (CELESTE) 4.5 min. Number of Stage 1 Shifts None Awakenings 12 Stage Changes 45 Number of REM periods 3 REM 17.0 5 REM Latency 188.0 min. NREM 318.0 95 Body Position Analysis Supine Right Left Side Prone Vertical Total Sleep Time (min.) 286.0 95.4 0.0 95.40 0.0 0.0 Total Sleep Time (%) 72% 28% 0% 28 0% N/A% Total Sleep Time REM (min.) 5.5 11.5 0.0 None 0.0 0.0 Total Sleep Time NREM (min.) 234.1 83.9 0.0 None 0.0 0.0 Intermittent Wake (min.) 46.4 25.8 15.3 None 0.0 0.0 Total Sleep Period (%) 66% None None None None None Arousals Myoclonus (PLM) * Events Count Index Events Count Index Spontaneous 2 0 Events Awake (PLMW) 174 119.3 Respiratory 1 0.5 Events Asleep w/ Arousal (PLMA) 8 1.4 PLM 7 1 Events Asleep w/o Arousal (PLMS) 734 131.5 Snoring 1 0 Total Asleep 742 132.9 Total 11 2 Total 916 130 Respiratory Analysis * CA OA MA CH H RERA Total Count 63 33 0 0 169 0 265 Index 11.3 5.9 0.0 0 30.3 0 47.5 Mean Duration 21.6 20.0 0.0 0.00 29.5 0.0 26.4 Longest Duration 46.2 26.9 0.0 0.00 0.0 0.0 80.9 Respiratory Event Summary Total Supine ~Supine Right Left Prone REM NREM Apneas Count 96 44 52 52 N/A N/A 0 96 Index 17.2 11 33 32.7 N/A N/A 0 18 Hypopneas (4% Desat) Count 169 137 32 32 N/A N/A 0 169 Index 30.3 34.3 20 20.1 N/A N/A 0.0 31.9 Apneas & All Hypopneas Count 265 181 84 84 N/A N/A 0 265 Index 47.5 45 53 53 N/A N/A 0.0 50.0 Respiratory Events (Audiovisual Aids Technician+All Hyp+RERA) Count 265 181 84 84 N/A N/A 0 265 Index 47.5 45 53 52.8 N/A N/A 0.0 50.0 Respiratory Related Arousal Count 1 181 2 2 N/A N/A 0 3 Index 0.5 0 1 1 N/A N/A 0 1 Snoring Analysis Supine Right Left Prone REM NREM Total Snore duration 29.3 min Snores count 881 165 N/A N/A 15 1,031 1,046 Snore mean duration 1.7 Sec Snores index 221 104 N/A N/A 52.9 194.5 187.3 TST with snoring (%) 8.7% Desaturation Event Summary: Minimum %SpO2 Event Count Mean/Min/Max Duration(sec.) Desaturation Index % Time In Bed > 90 269 28.9 / 6.5 / 60.0 60.0 65.0 86 - 90 35 23.9 / 13.3 / 60.0 15.1 33.7 81 - 85 0 N/A 0.0 1.1 76 - 80 0 N/A 0.0 0.1 71 - 75 0 N/A 0.0 0.0 66 - 70 0 N/A 0.0 0.0 61 - 65 0 N/A 0.0 0.0 56 - 60 0 N/A 0.0 0.0 51 - 55 0 N/A 0.0 0.0 < 50 0 N/A 0.0 0.0 Total REM NREM Awake <50% 0.0 min. 0.0 min. 0.0 min. 0.0 min. 51 - 60% 0.0 min. 0.0 min. 0.0 min. 0.0 min. 61 - 70% 0.0 min. 0.0 min. 0.0 min. 0.0 min. 71 - 80% 0.6 min. 0.0 min. 0.6 min. 0.0 min. 81 - 90% 143.9 min. 11.9 min. 129.7 min. 2.3 min. 91 - 100% 268.8 min. 5.1 min. 187.7 min. 76.0 min. Average 92 90 91 96 Minimum SpO2 76 86 76 87 Desaturation Event Index 39.2 0.0 50.6 6.9 # Desat. Events below 89% 161 0 159 2 Time(%) with Saturation below 89% 17.1 2.8 14.1 0.2 Time(min.) with Saturation below 89% 70.6 11.7 58.2 0.7 Time (mins) REM (mins) NREM (mins) % of TST SpO2 Below 90% 253 0 N253 30.4 SpO2 Below 88% 75 0 0 11 Heart Rate Analysis Min (bpm) Max (bpm) Average (bpm) Awake 50 80 63 NREM 47 80 57 REM 48 73 57 Overall 47 80 57 Supplemental O2 Values Minimum O2 level: None Value Start Time End Time Dust Brush Assembler Comments Mr. Daniel slept in the right and supine positions. No cardiac arrhythmia. PLMs noted. No bruxism noted. CPAP was initiated at +4 CMH2O and up-titrated to a level of +11 CMH2O Cflex. Patient was then switched to BIPAP due to a high pressure and central apneas. PAP initiated at an IPAP of +15 CMH2O and an EPAP of +10 CMH2O up-titrated to a level of: IPAP +24 CMH2O, EPAP +15 CMH20 BiFlex 2 with a rate of 12 BPM. A ResMed mirage, was used during titration Mr. Daniel awoke to use the urinal once during the night. Mr. Daniel stated, I got up at my usual times. The final report will be interpreted and signed by a sleep physician. The completed physician report will then be placed in the patient medical record. Therapy Event: Therapy (cm H20) 0 4 6 8 9 10 11 Total Time at Pressure (min.) 0.3 9.0 18.6 18.6 10.4 10.4 7.7 TST at Pressure (min.) 0.0 4.8 18.6 18.6 10.4 9.9 7.7 # Periods 1 1 1 1 1 1 1 Sleep Onset (min.) N/A 4.2 0.0 0.0 0.0 0.0 0.0 REM Onset (min.) N/A N/A N/A N/A N/A N/A N/A Sleep Efficiency % 0 53 100 100 100 95 100 Wakefulness (%) 100.0 47.0 0.0 0.0 0.0 4.8 0.0 Wakefulness (min.) 0.3 4.2 0.0 0.0 0.0 0.5 0.0 NREM 1 (%) 0.0 33.5 0.0 0.0 0.0 4.8 0.0 NREM 1 (min.) 0.0 3.0 0.0 0.0 0.0 0.5 0.0 NREM 2 (%) 0.0 19.6 49.7 0.0 51.9 90.4 100.0 NREM 2 (min.) 0.0 1.8 9.2 0.0 5.4 9.4 7.7 NREM 3 (%) 0.0 0.0 50.3 100.0 48.1 0.0 0.0 NREM 3 (min.) 0.0 0.0 9.4 18.6 5.0 0.0 0.0 REM (%) 0.0 0.0 0.0 0.0 0.0 0.0 0.0 REM (min.) 0.0 0.0 0.0 0.0 0.0 0.0 0.0 # Arousals N/A 0 0 0 0 1 0 Arousal Index N/A 0.0 0.0 0.0 0.0 6.0 0.0 # Snore N/A 2 76 21 3 4 2 Snore Index N/A 25.2 245.1 67.6 17.3 24.2 15.7 AHI N/A 75.7 25.8 41.9 69.2 66.5 39.2 AHI Supine N/A 75.7 25.8 41.9 69.2 66.5 39.2 AHI Non-Supine N/A N/A N/A N/A N/A N/A N/A NREM AHI N/A 75.7 25.8 41.9 69.2 66.5 39.2 REM AHI N/A N/A N/A N/A N/A N/A N/A RDI N/A 75.7 25.8 41.9 69.2 66.5 39.2 # Obstructive N/A 3 3 0 2 2 0 # Central Ap N/A 0 0 0 0 1 1 # Mixed N/A 0 0 0 0 0 0 # Hypopneas N/A 3 5 13 10 8 4 RERAS N/A 0 0 0 0 0 0 Total Respiratory Events N/A 6 8 13 12 11 5 Time Below SpO2 89.00% (min.) 0.0 0.6 10.6 3.3 0.7 0.0 0.1 Mean NREM SpO2 (%) N/A 91 89 90 91 92 92 Mean REM SpO2 (%) N/A N/A N/A N/A N/A N/A N/A Mean Sleep SpO2 (%) N/A 91 89 90 91 92 92 Min NREM SpO2 (%) N/A 87 86 86 88 89 88 Min REM SpO2 (%) N/A N/A N/A N/A N/A N/A N/A Position Supine (min.) 0.0 4.8 18.6 18.6 10.4 9.9 7.7 Position Non-supine (min.) 0.0 0.0 0.0 0.0 0.0 0.0 0.0 LM Index Sleep N/A 12.6 16.1 164.2 247.8 235.9 219.5 LM Index NREM N/A 12.6 16.1 164.2 247.8 235.9 219.5 LM Index REM N/A N/A N/A N/A N/A N/A N/A Mean Heart Rate (bpm) N/A 65 64 63 61 62 61 Min Heart Rate (bpm) N/A 62 60 57 56 56 56 Therapy (cm H20) 03/16 117 128 14 1510 1610 17/10 Total Time at Pressure (min.) 7.7 6.3 22.9 16.7 60.6 75.6 6.2 TST at Pressure (min.) 6.5 6.3 22.9 16.7 22.9 52.1 6.2 # Periods 1 1 1 1 2 1 1 Sleep Onset (min.) 1.2 0.0 0.0 0.0 0.0 0.0 0.0 REM Onset (min.) N/A N/A N/A N/A N/A 3.3 N/A Sleep Efficiency % 84 100 100 100 37 68 100 Wakefulness (%) 15.8 0.0 0.0 0.0 62.3 31.1 0.0 Wakefulness (min.) 1.2 0.0 0.0 0.0 37.8 23.5 0.0 NREM 1 (%) 32.5 0.0 2.2 0.0 1.6 11.2 0.0 NREM 1 (min.) 2.5 0.0 0.5 0.0 1.0 8.5 0.0 NREM 2 (%) 51.7 100.0 97.8 100.0 36.1 42.4 100.0 NREM 2 (min.) 4.0 6.3 22.4 16.7 21.9 32.1 6.2 NREM 3 (%) 0.0 0.0 0.0 0.0 0.0 0.0 0.0 NREM 3 (min.) 0.0 0.0 0.0 0.0 0.0 0.0 0.0 REM (%) 0.0 0.0 0.0 0.0 0.0 15.2 0.0 REM (min.) 0.0 0.0 0.0 0.0 0.0 11.5 0.0 # Arousals 1 0 1 0 1 3 0 Arousal Index 9.3 0.0 2.6 0.0 2.6 3.5 0.0 # Snore 0 2 2 2 19 174 11 Snore Index 0.0 19.0 5.2 7.2 49.9 200.5 106.9 AHI 92.6 85.7 81.3 75.5 31.5 33.4 77.7 AHI Supine N/A N/A N/A N/A 17.1 70.2 77.7 AHI Non-Supine 92.6 85.7 81.3 75.5 43.7 7.8 N/A NREM AHI 92.6 85.7 81.3 75.5 31.5 42.9 77.7 REM AHI N/A N/A N/A N/A N/A 0.0 N/A RDI 92.6 85.7 81.3 75.5 31.5 33.4 77.7 # Obstructive 2 4 14 2 0 1 0 # Central Ap 5 5 15 5 0 5 0 # Mixed 0 0 0 0 0 0 0 # Hypopneas 3 0 2 14 12 23 8 RERAS 0 0 0 0 0 0 0 Total Respiratory Events 10 9 31 21 12 29 8 Time Below SpO2 89.00% (min.) 2.8 3.0 5.2 3.7 4.4 24.4 0.9 Mean NREM SpO2 (%) 89 89 91 91 91 91 92 Mean REM SpO2 (%) N/A N/A N/A N/A N/A 87 N/A Mean Sleep SpO2 (%) 89 89 91 91 91 90 92 Min NREM SpO2 (%) 76 80 85 87 85 81 87 Min REM SpO2 (%) N/A N/A N/A N/A N/A 86 N/A Position Supine (min.) 0.0 0.0 0.0 0.0 10.5 21.4 6.2 Position Non-supine (min.) 6.5 6.3 22.9 16.7 12.3 30.7 0.0 LM Index Sleep 259.4 219.0 167.8 168.9 120.7 94.5 136.0 LM Index NREM 259.4 219.0 167.8 168.9 120.7 110.9 136.0 LM Index REM N/A N/A N/A N/A N/A 36.5 N/A Mean Heart Rate (bpm) 59 56 54 55 60 57 53 Min Heart Rate (bpm) 53 50 48 49 51 47 48 Therapy (cm H20) 28/0312 12 /13 23/14 24/15 Total Time at Pressure (min.) 5.1 6.7 24.2 24.3 40.4 18.9 31.9 TST at Pressure (min.) 5.1 6.7 23.7 23.8 36.9 18.9 16.4 # Periods 1 1 1 1 1 1 1 Sleep Onset (min.) 0.0 0.0 0.0 0.0 0.0 0.0 0.0 REM Onset (min.) N/A N/A N/A N/A 11.2 N/A N/A Sleep Efficiency % 100 100 97 97 91 100 51 Wakefulness (%) 0.0 0.0 2.1 2.1 8.7 0.0 48.6 Wakefulness (min.) 0.0 0.0 0.5 0.5 3.5 0.0 15.5 NREM 1 (%) 0.0 0.0 4.1 4.1 8.7 0.0 4.7 NREM 1 (min.) 0.0 0.0 1.0 1.0 3.5 0.0 1.5 NREM 2 (%) 100.0 100.0 93.8 93.8 69.0 100.0 46.7 NREM 2 (min.) 5.1 6.7 22.7 22.8 27.9 18.9 14.9 NREM 3 (%) 0.0 0.0 0.0 0.0 0.0 0.0 0.0 NREM 3 (min.) 0.0 0.0 0.0 0.0 0.0 0.0 0.0 REM (%) 0.0 0.0 0.0 0.0 13.6 0.0 0.0 REM (min.) 0.0 0.0 0.0 0.0 5.5 0.0 0.0 # Arousals 0 0 1 1 1 0 1 Arousal Index 0.0 0.0 2.5 2.5 1.6 0.0 3.7 # Snore 4 0 19 43 221 235 206 Snore Index 46.7 0.0 48.1 108.4 359.6 744.2 753.6 AHI 58.3 63.0 38.0 55.4 34.2 38.0 29.3 AHI Supine 58.3 63.0 38.0 55.4 34.2 38.0 29.3 AHI Non-Supine N/A N/A N/A N/A N/A N/A N/A NREM AHI 58.3 63.0 38.0 55.4 40.2 38.0 29.3 REM AHI N/A N/A N/A N/A 0.0 N/A N/A RDI 58.3 63.0 38.0 55.4 34.2 38.0 29.3 # Obstructive 0 0 0 0 0 0 0 # Central Ap 0 0 0 9 10 3 4 # Mixed 0 0 0 0 0 0 0 # Hypopneas 5 7 15 13 11 9 4 RERAS 0 0 0 0 0 0 0 Total Respiratory Events 5 7 15 22 21 12 8 Time Below SpO2 89.00% (min.) 0.5 1.2 4.6 0.8 2.4 0.7 0.0 Mean NREM SpO2 (%) 92 91 91 92 93 93 94 Mean REM SpO2 (%) N/A N/A N/A N/A 95 N/A N/A Mean Sleep SpO2 (%) 92 91 91 92 93 93 94 Min NREM SpO2 (%) 87 87 88 88 84 86 89 Min REM SpO2 (%) N/A N/A N/A N/A 88 N/A N/A Position Supine (min.) 5.1 6.7 23.7 23.8 36.9 18.9 16.4 Position Non-supine (min.) 0.0 0.0 0.0 0.0 0.0 0.0 0.0 LM Index Sleep 140.0 125.9 65.8 32.8 133.4 215.3 204.9 LM Index NREM 140.0 125.9 65.8 32.8 154.9 215.3 204.9 LM Index REM N/A N/A N/A N/A 10.9 N/A N/A Mean Heart Rate (bpm) 54 54 55 54 53 52 53 Min Heart Rate (bpm) 48 50 50 49 47 47 48
--- NOTE | 2017-11-01 17:08 | POLYSOMNOGRAPH REPORT ---
CLINICAL DATA: An 87-year-old male with severe sleep apnea with a diagnostic AHI of 74.1 referred for a CPAP titration study by Dr. Geiger and myself. SLEEP ARCHITECTURE: Total sleep period was 403 minutes. Total sleep time was 335 minutes divided between 318 minutes of non-REM sleep and 17 minutes of REM sleep. Sleep latency was 4.5 minutes. REM latency was 188 minutes. Sleep efficiency was 79%. Wake after sleep onset was 83 minutes. Sleep consisted of stage N1 7%, stage N2 78%, stage N3 10%, and REM 5%. AROUSAL DATA: Eleven arousals were recorded for an index of 2 per hour. PLM DATA: Severe PLMD was noted. There were 742 limb movements during sleep noted for an index of 133 per hour with arousal index of 1.4 per hour. RESPIRATORY DATA: The AHI was 47.5. There were 63 central and 33 obstructive apneic episodes. The longest apneic episode was 46.2 seconds. There were 169 hypopneic episodes with a mean duration of 29.5 seconds. OXIMETRY DATA: Nocturnal hypoxemia was seen. Oxygen alberto was 76% during non-REM sleep. Mean saturation was 92%. Time below 88% was 75 minutes. EKG: Heart rate ranged from 47-80 beats per minute. No arrhythmias were noted. DOCUMENTATION MANAGER'S COMMENTS AND TREATMENT SUMMARY: The patient slept in the right and supine position. The patient used a ResMed Mirage mask. He was started on CPAP and was titrated up to 11 cm water pressure. He then was switched to BiPAP because of central apneic episodes and was eventually titrated up to IPAP 24, EPAP 15 Bi-Flex 2 with a rate of 12 breaths per minute. No optimal pressure could be found during his CPAP/BiPAP titration. IMPRESSION: Severe sleep apnea/hypopnea with development of treatment onset central apneic episodes consistent with complex sleep apnea. RECOMMENDATIONS: The patient would benefit from an ASV titration study. RAINED
== END | disposition home or self-care (01) ==
LOC: C.NEUR 20:00
PROVIDERS: ATTEND Internal Medicine
DX: G47.30 Sleep apnea, unspecified (principal)